=== PATIENT | female | born 2000 | race Two or more races ===

== ENCOUNTER 2022-02-11 17:46 | Outpatient (CLI) | payer OTHER, SELFPAY ==
--- NOTE | 2022-02-11 | LES_PTH ---
PATIENT: BETTIE JADE LOC: [facility] U#:[id number] AGE/SX: 21/F ROOM: RE02/11/[address]: Dr. Bridget Ascencio DPM : 2000 BED: DIS: 02/11/2022 SPEC #: [id number] RECD: 02/11/22 17:48 STATUS: JACK AL #: [id number] JOSE M: 02/11/22 00:[address]: Bridget Ascencio DEPT: SURGICAL PATHOLOGY RECD BY: Sindi Julian Tissues: Skin, NOS Procedures: Surgery Specimen Level IV HEADER OPERATION: Skin biopsy, left fifth toe PRE-OP DIAGNOSIS: B07.0 TISSUE SUBMITTED: Left fifth toe MICROSCOPIC DIAGNOSIS Left foot toe, biopsy: Fragments of verruca vulgaris. AM:jair 02/17/2022 COMMENT Case has been reviewed in consultation with Dr. Yeager who concurs with the above diagnosis. IDC:SJ MICROSCOPIC DESCRIPTION Slides are reviewed. GROSS DESCRIPTION Received in fixative is one container labeled with the patient's name and designated left fifth toe. The specimen consists of multiple irregular fragments of cassidy, indurated tissue that in aggregate measure 2.5 x 2 x 0.2 cm. The specimen is totally submitted in one cassette. / AM:jair 02/12/2022 TC:5 [facility]: [id number]
== END 2022-02-11 23:59 | disposition home or self-care (01) ==
PROVIDERS: Visit Provider Podiatrist
DX: B07.0 Plantar wart (principal)
CPT/HCPCS: 88305